=== PATIENT | female | born 1975 ===

== ENCOUNTER 2019-05-07 16:45 | Observation (INO) ==
[2019-05-07] MEDS ORDERED: miSOPROStol 100 MCG TABLET VG STA (18:44)
[2019-05-07] MEDS ORDERED: Ondansetron 4 MG/2 ML VIAL IVP PRN (19:19)
[2019-05-07] MEDS ORDERED: Naloxone 0.4 MG/ML INJ IVP PRN (19:19)
[2019-05-07] MEDS ORDERED: Famotidine 20 MG/2 ML VIAL IVP PRN (19:19)
[2019-05-07] MEDS ORDERED: *HR* Nalbuphine 10 MG/ML AMPUL IVP PRN (19:19)
[2019-05-07] MEDS ORDERED: Acetaminophen 325 MG TABLET PO PRN (19:24)
[2019-05-07] MEDS ORDERED: Ringers Solution, Lactated 1,000 ML IVC SCH (19:30)
[2019-05-07 20:07] LABS: Basophils % 0.3 %; Eosinophils # 0.1 K/mcL (0.0-0.6); Eosinophils % 1.1 %; Hematocrit 37.6 % (35.3-44.9); Immature Granulocytes % 0.3 % (0-4); Lymphocytes # 1.9 K/mcL (0.6-4.6); Lymphocytes % 19.7 %; Mean Corpuscular HGB Conc 34.6 g/dL (31.6-35.5); Mean Corpuscular Hemoglobin 32.5 pg (28.0-33.3); Mean Platelet Volume 10.7 fL (9.4-12.4); Monocytes # 0.7 K/mcL (0.0-1.3); Monocytes % 7.7 %; Neutrophils # 6.7 K/mcL (1.6-8.9); Platelet Count 218 K/mcL (140-400); Red Cell Distribution Width 11.6 % (11.5-14.5); Segmented Neutrophils % 70.9 %; White Blood Count 9.5 K/mcL (4.3-11.1)
[2019-05-07 20:17] LABS: Amphetamine Screen,Urine Negative ng/mL (Cutoff=1000); Barbiturate Screen,Urine Negative ng/mL (Cutoff=200); Benzodiazepines Screen,Urine Negative ng/mL (Cutoff=200); Cannabinoid Screen,Urine Negative ng/mL (Cutoff = 50); Cocaine Screen,Urine Negative ng/mL (Cutoff= 300); Opiate Screen,Urine Negative ng/mL (Cutoff=300); Phencyclidine Screen,Urine Negative ng/mL (Cutoff=25)
[2019-05-07] MEDS ORDERED: miSOPROStol 100 MCG TABLET PO SCH (22:00)
[2019-05-08] MEDS ORDERED: *HR* FentaNYL (PF) 100 MCG/2 ML VIAL EP ONE (00:03)
[2019-05-08] MEDS ORDERED: Bupivacaine-MPF 0.25% 10 ML VIAL EP ONE (00:03)
[2019-05-08] MEDS ORDERED: *HR* FentaNYL (PF) 100 MCG/2 ML VIAL ONE (00:07)
[2019-05-08] MEDS ORDERED: Bupivacaine-MPF 0.25% 10 ML VIAL ONE (00:07)
[2019-05-08] MEDS ORDERED: Epidural Premix (fent/bupiv) 110 ML EP SCH (00:15)
[2019-05-08] MEDS ORDERED: Diphenoxylate/Atropine 1 TAB TABLET PO ONE (01:01)
[2019-05-08] MEDS ORDERED: Ibuprofen 600 MG TABLET PO PRN (03:02)
[2019-05-08] MEDS ORDERED: Methylergonovine 0.2 MG/ML AMPUL IM ONE (08:09)
== END 2019-05-08 08:10 | disposition home or self-care (01) ==
LOC: 1NENULAB
PROVIDERS: ADMIT Student in an Organized Health Care Education/Training Program; ATTEND Student in an Organized Health Care Education/Training Program